=== PATIENT | female | born 1970 | race Caucasian/White ===

== ENCOUNTER 2022-02-19 17:04 | Emergency (ER) | payer OTHER ==
[~2022-02-19] VITALS: Ht 154.9 cm; Wt 78.5 kg
[2022-02-19 17:24] VITALS: BP 139/70
--- NOTE | 2022-02-19 17:59 | NUR ---
Patient discharged to home in stable condition. Written and verbal after care instructions given. Patient verbalizes understanding of instruction.
== END 2022-02-19 18:12 | disposition home or self-care (01) ==
LOC: ER 17:15
DX: I10 Essential (primary) hypertension (principal); E11.9 Type 2 diabetes mellitus without complications
CPT/HCPCS: 82962-TC